=== PATIENT | male | born 1995 | race American Indian/Alaskan Native ===

== ENCOUNTER 2017-06-15 23:25 | Emergency (ER) | payer SELFPAY ==
[2017-06-15 23:32] VITALS: BMI 33.7
[2017-06-15 23:35] VITALS: TEMP 98
--- NOTE | 2017-06-15 23:52 | ED PDOC ---
Arrival/HPI - General Chief Complaint: ENT Problem Time Seen by Provider: 06/15/17 23:30 Historian: Patient - History of Present Illness Narrative History of Present Illness (Text): 06/15/17 23:46 22yr old male presents today with nose bleed. pt states he sneezed at home and started bleeding from the left nostril. pt states he put tissues in his nose right away and then tilted his head backwards.pt states he then felt blood in the back of this throat and spit out a large blood clot. pt states he became concerned about the blood clot and called 911. pt states he developed achy pain to the right side of the chest. pt states he has had this pain on and off for the past 3 months or more. no trauma or injury. denies sob. pt states he was sick 2 weeks ago with cough and nasal congestion. denies cough currently. denies abdominal pain. no n/v/d/c. pt states he has prior hx of htn, but has not taken bp medications in a long time. Time/Duration: Prior to Arrival Symptom Onset: Sudden Symptom Course: Improving Past Medical History - Provider Review Nursing Documentation Reviewed: Yes - Travel History Have you recently traveled outside [place] w/in the past 3 mons?: No - Tetanus Immunization Tetanus Immunization: Unknown - Psychiatric Hx Substance Use: No Family/Social History - Physician Review Nursing Documentation Reviewed: Yes Family/Social History: Unknown Family HX Smoking Status: n Hx Alcohol Use: No Hx Substance Use: No Allergies/Home Meds Allergies/Adverse Reactions: Allergies No Known Allergies Allergy (Verified 06/15/17 23:32) Home Medications: Home Meds Medication Instructions Recorded Confirmed No Known Home Med 06/15/17 06/15/17 Review of Systems - Review of Systems Constitutional: absent: Fatigue, Fevers ENT: Epistaxis, Sinus Congestion Respiratory: absent: SOB, Cough Cardiovascular: Chest Pain (right sided cp). absent: Palpitations Gastrointestinal: absent: Abdominal Pain, Constipation, Diarrhea, Nausea, Vomiting Genitourinary Male: absent: Dysuria, Frequency, Hematuria Musculoskeletal: absent: Arthralgias, Back Pain, Neck Pain Skin: absent: Rash, Pruritis Psychiatric: absent: Anxiety, Depression, Suicidal Ideation Physical Exam Vital Signs Reviewed: Yes Vital Signs Temp Pulse Resp BP Pulse Ox 06/16/17 05:08 65 18 142/75 98 06/16/17 04:15 57 L 18 145/89 97 06/16/17 02:53 62 16 124/69 96 06/16/17 01:25 55 L 16 130/66 97 06/15/17 23:25 98.0 F 71 18 126/66 98 Temperature: Afebrile Blood Pressure: Normal Pulse: Regular Respiratory Rate: Normal Appearance: Positive for: Well-Appearing, Non-Toxic, Comfortable Pain Distress: None Mental Status: Positive for: Alert and Oriented X 3 - Systems Exam Head: Present: Atraumatic Extroacular Muscles: Present: EOMI Conjunctiva: Present: Normal Ears: Present: Normal, NORMAL TM Mouth: Present: Moist Mucous Membranes, Normal Lips, Normal Tounge, Normal Teeth. No: Drooling, Trismus Pharnyx: Present: Normal. No: ERYTHEMA, EXUDATE, TONSILS ENLARGED, Peritonsilar Swelling, Uvular Deviation, Muffled/Hoarse Voice, Soft Palate/ Uvular Edema Nose (External): Present: Atraumatic Nose (Internal): Present: No Active Bleeding, Other (left nostril; there is an area of dried blood noted to the anterior septum; no active bleeding). No: Septal Hematoma Neck: Present: Normal Range of Motion, Trachea Midline. No: Lymphadenopathy Respiratory/Chest: Present: Clear to Auscultation, Good Air Exchange, Tender to Palpation (+ ttp over right lateral anterior chest wall. no edema, no erythema; no ecchymosis.). No: Respiratory Distress, Accessory Muscle Use Cardiovascular: Present: Regular Rate and Rhythm, Normal S1, S2. No: Murmurs Abdomen: No: Tenderness, Distention, Rebound, Guarding Breast/Axillary: No: Axillary Lymphad Back: Present: Normal Inspection Upper Extremity: Present: Normal ROM Lower Extremity: Present: Normal ROM Neurological: Present: GCS=15, Speech Normal Skin: Present: Warm, Dry, Normal Color. No: Rashes Psychiatric: Present: Alert, Oriented x 3 Medical Decision Making ED Course and Treatment: 06/16/17 00:00 22yr old male; non toxic well appearing; no distress. pt with left sided nose bleed. now with right sided lateral chest pain tender to palpation ekg; normal sinus rhythm with sinus arrhythmia at 72 bpm normal axis normal intervals no ST elevations cxr; wnl cbc: wnl cmp:wnl pt wnl ptt wnl toradol given for pain. trop; pt reassessment; pt non toxic, well appearing; no distress. stable vitals. 06/16/17 00:04 pt with nose bleed which caused blood dripping into back of throat; when patient spit out blood he became concerned. no active bleeding, labs wnl, ekg reviewed by dr. fan. pt with right sided reproducible chest pain when pushing with right arm; + ttp over right anterior lateral chest wall, on and off for 3 months. 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 06/16/17 00:54 case signed out to dr. fan PENDING 2nd troponin; re-evaluation and disposition Impression:nosebleed, musculoskeletal chest pain motrin every 6 hours as needed for pain follow up with the primary care physician within the next 2 days. follow up with the ENT specialist within the next 2 days. return if symptoms worsen,persist or if new symptoms develop. - Lab Interpretations Lab Results: 06/16/17 00:05 06/16/17 00:05 Lab Results 06/16/17 04:05: Lactate Dehydrogenase 482, Total Creatine Kinase 158, Troponin I < 0.01 06/16/17 00:05: Lactate Dehydrogenase 368, Total Creatine Kinase 173, Troponin I < 0.01 06/16/17 00:05: WBC 8.7, RBC 4.43, Hgb 12.6 L, Hct 37.2 L, MCV 84.0, MCH 28.4, MCHC 33.9, RDW 13.0, Plt Count 271, MPV 10.2, Gran % 60.4, Lymph % (Auto) 28.4, [place] % (Auto) 7.7 H, Eos % (Auto) 3.3, Baso % (Auto) 0.2, Gran # 5.22, Lymph # 2.5, [place] # 0.7 H, Eos # 0.3, Baso # 0.02 06/16/17 00:05: Sodium 142, Potassium 4.0, Chloride 105, Carbon Dioxide 27, Anion Gap 14, BUN 15, Creatinine 0.9, Est GFR ( Amer) > 60, Est GFR (Non- Af Amer) > 60, Random Glucose 108, Calcium 9.0, Total Bilirubin 0.5, AST 40, ALT 41, Alkaline Phosphatase 98, Total Protein 7.9, Albumin 4.2, Globulin 3.8, Albumin/Globulin Ratio 1.1 06/16/17 00:05: PT 11.2, INR 1.03, APTT 27.6 - RAD Interpretation Radiology Orders: 06/15/17 23:44 CHEST TWO VIEWS (PA/LAT) [RAD] Stat - Medication Orders Current Medication Orders: Discontinued Medications Ketorolac Tromethamine (Toradol) 15 mg IVP STAT STA Stop: 06/16/17 00:04 Last Admin: 06/16/17 00:40 Dose: 15 mg MAR Pain Assessment Document 06/16/17 00:40 JOL (Rec: 06/16/17 00:54 JOL [id number]) Pain Reassessment Is this a pain reassessment? No Sleep Is patient sleeping during reassessment? No Presence of Pain Presence of Pain Yes Pain Scale Used Pain Scale Used Numeric Location Left, Right or Bilateral Right Pain Location Body Site Chest Description Intensity of Pain at present 5 IVP Administration Document 06/16/17 00:40 JOL (Rec: 06/16/17 00:54 JOL [id number]) Charges for Administration # of IVP Administrations 1 Disposition/Present on Arrival - Present on Arrival Any Indicators Present on Arrival: No History of DVT/PE: No History of Uncontrolled Diabetes: No Urinary Catheter: No History of Decub. Ulcer: No History Surgical Site Infection Following: None - Disposition Have Diagnosis and Disposition been Completed?: Yes Diagnosis: Epistaxis, Chest pain, musculoskeletal Disposition: HOME/ ROUTINE Disposition Time: 04:20 Patient Plan: Discharge Condition: STABLE Discharge Instructions (ExitCare): Chest Pain (ED), Nosebleed (ED) Additional Instructions: motrin every 6 hours as needed for pain follow up with the primary care physician within the next 2 days. follow up with the ENT specialist within the next 2 days. return if symptoms worsen,persist or if new symptoms develop. Referrals: Chevy Davis DO [Doctor Osteopathy] - Follow up with primary Yenny Bacon MD [Staff Provider] - Follow up with primary [facility] at [facility] [Outside] - Follow up with primary Forms: [employer] (Norwegian)
[2017-06-16 00:26] LABS: BASO # 0.02 K/mm3 (0.0-2.0); BASO % 0.2 % (0.0-3.0); EOS # 0.3 (0.0-0.7); EOS % 3.3 % (1.5-5.0); GRAN # 5.22 (1.4-6.5); GRAN % 60.4 % (50.0-68.0); HEMATOCRIT 37.2 % (42.0-52.0); LYMPH # 2.5 (1.2-3.4); LYMPH % 28.4 % (22.0-35.0); MEAN CORPUSCULAR HEMOGLOBIN 28.4 pg (25.0-35.0); MEAN CORPUSCULAR HGB CONC 33.9 g/dl (31.0-37.0); MEAN PLATELET VOLUME 10.2 fl (7.0-11.0); MONO # 0.7 (0.1-0.6); MONO % 7.7 % (1.0-6.0); WHITE BLOOD COUNT 8.7 10^3/ul (4.5-11.0)
[2017-06-16 00:38] LABS: INR 1.03 (0.93-1.08); PARTIAL THROMBOPLASTIN TIME 27.6 Seconds (25.1-36.5)
[2017-06-16 00:39] LABS: ALB/GLOB RATIO 1.1 (1.1-1.8); ALKALINE PHOSPHATASE 98 U/L (38-126); ALT/SGPT 41 U/L (7-56); AST/SGOT 40 U/L (17-59); BILIRUBIN,TOTAL 0.5 mg/dL (0.2-1.3); BLOOD UREA NITROGEN 15 mg/dL (7-21); CARBON DIOXIDE 27 mmol/L (21-33); CHLORIDE 105 mmol/L (98-107); GFR AFRICAN-AMERICAN > 60; GLUCOSE,RANDOM 108 mg/dL (70-110); SODIUM 142 mmol/L (132-148); TOTAL PROTEIN 7.9 g/dL (5.8-8.3)
[2017-06-16 01:05] LABS: TROPONIN I < 0.01 ng/mL
[2017-06-16 04:15] VITALS: RESP 18
[2017-06-16 04:58] LABS: TROPONIN I < 0.01 ng/mL
[2017-06-16 05:10] VITALS: BP 142/75; PULSE 65; O2SAT 98
--- NOTE | 2017-06-16 09:37 | RAD ---
HISTORY: cough/right sided cp COMPARISON: No prior. TECHNIQUE: Chest PA and lateral FINDINGS: LUNGS: No active pulmonary disease. PLEURA: No significant pleural effusion identified. No pneumothorax apparent. CARDIOVASCULAR: Normal. OSSEOUS STRUCTURES: No significant abnormalities. VISUALIZED UPPER ABDOMEN: Normal. OTHER FINDINGS: None. IMPRESSION: No active disease.
--- NOTE | 2017-06-16 17:25 | CARD ---
APPROVED REPORT EKG Measurement Heart [id number] <Conclusion> Normal sinus rhythm with sinus arrhythmia Normal ECG
== END 2017-06-16 05:16 | disposition home or self-care (01) ==
LOC: ED 23:25
DX: R04.0 Epistaxis (principal); R07.89 Other chest pain